=== PATIENT | female | born 1955 | race Caucasian/White ===

== ENCOUNTER 2022-01-05 17:54 | Emergency (ER) | payer OTHER, BC ==
[2022-01-05 18:19] VITALS: BP 132/76; PULSE 72; RESP 20; TEMP 98.2; BMI 23.4
== END 2022-01-05 19:36 | disposition home or self-care (01) ==
LOC: FER 17:54
DX: R22.1 Localized swelling, mass and lump, neck (principal)
CPT/HCPCS: 99282-25